=== PATIENT | female | born 1995 | race African-American/Black ===

== ENCOUNTER 2019-09-27 09:30 | Emergency (ER) | payer MEDICAID ==
[~2019-09-27] VITALS: Ht 160 cm; Wt 56.7 kg
[2019-09-27 09:35] VITALS: BP 124/82; Ht 160 cm; Wt 56.7 kg
[2019-09-27] MEDS ORDERED: AMOXIL125 MG/5 M (09:36)
[2019-09-27 10:17] LABS: BASOPHILS 0.6 % (0-2); EOSINOPHILS 0.1 % (0-7); HEMATOCRIT 37.8 % (36.0-48.0); HEMOGLOBIN 12.4 g/dL (12-16); IMMATURE GRANULOCYTES 0.6 % (0-5); LYMPHOCYTES 19.7 % (15-50); MCH 28.9 pg (26.0-34.0); MCHC 32.8 g/dL (31.0-37.0); MCV 88.1 fL (80.0-100.0); MEAN PLATELET VOLUME 9.2 fL (7.4-10.4); MONOCYTES 16.1 % (2-11); NEUTROPHILS 62.9 % (40-80); PLATELET COUNT 320 10x3/uL (130-400); RBC 4.29 10x6/uL (4.00-5.40); RDW 13.5 % (11.5-14.5); WBC 6.8 10x3/uL (4.8-10.8)
[2019-09-27 10:23] LABS: CALC OSMOLALITY 275 mosm/kg (275-300); CALCIUM 9.4 mg/dL (8.5-10.1); CARBON DIOXIDE 29.7 mmol/L (21.0-32.0); CHLORIDE - SERUM 100 mmol/L (98-107); CREATININE - SERUM 0.8 mg/dL (0.6-1.3); GLUCOSE 101 mg/dL (74-106); POTASSIUM - SERUM 3.5 mmol/L (3.5-5.1); SODIUM 139 mmol/L (136-145); UREA NITROGEN 6 mg/dL (7-18); eGFR NON AFRICAN AMERICAN > 90 mL/min (90-120)
[2019-09-27 10:26] LABS: MONO NEGATIVE (NEGATIVE)
[2019-09-27 10:31] LABS: ALBUMIN 3.7 g/dL (3.4-5.0); ALKALINE PHOSPHATASE 64 U/L (30-120); ALT (SGPT) 20 U/L (10-68); BILIRUBIN - TOTAL 0.36 mg/dL (0.2-1.3)
[2019-09-27] MEDS ORDERED: VIBRAMYCIN 100100 MG PO (10:40)
[2019-09-27] MEDS ORDERED: PREDNISONE20 MG PO (10:40)
[2019-09-28 10:11] LABS: EBV VIRAL CAPSID AB IGM <36.0 U/mL (0.0-35.9)
== END 2019-09-27 11:18 | disposition home or self-care (01) ==
LOC: D.ER 09:30
PROVIDERS: Family Medicine
DX: J02.9 Acute pharyngitis, unspecified (principal); D72.821 Monocytosis (symptomatic)